=== PATIENT | male | born 1935 | race Caucasian/White ===

== ENCOUNTER 2016-03-29 13:59 | Outpatient (CLI) | payer MEDICARE, OTHER | END 2016-03-29 14:00 | disposition home or self-care (01) | DX: D50.0 Iron deficiency anemia secondary to blood loss (chronic) (principal) ==

== ENCOUNTER 2016-04-28 13:24 | Outpatient (CLI) | payer MEDICARE, OTHER | END 2016-04-28 13:25 | disposition home or self-care (01) | DX: G47.33 Obstructive sleep apnea (adult) (pediatric) (principal) | CPT/HCPCS: 99214; G0463 ==

== ENCOUNTER 2016-05-25 13:54 | Outpatient (CLI) | payer MEDICARE, OTHER | END 2016-05-25 13:55 | disposition home or self-care (01) | DX: J30.9 Allergic rhinitis, unspecified (principal); E78.5 Hyperlipidemia, unspecified; D50.9 Iron deficiency anemia, unspecified; F31.9 Bipolar disorder, unspecified; K21.9 Gastro-esophageal reflux disease without esophagitis; Z85.46 Personal history of malignant neoplasm of prostate; K22.10 Ulcer of esophagus without bleeding; G47.30 Sleep apnea, unspecified ==

== ENCOUNTER 2016-06-28 13:09 | Outpatient (CLI) | payer MEDICARE, OTHER | END 2016-06-28 13:10 | disposition home or self-care (01) | DX: G47.33 Obstructive sleep apnea (adult) (pediatric) (principal) | CPT/HCPCS: 99214; G0463 ==

== ENCOUNTER 2016-07-12 08:35 | Outpatient (CLI) | payer MEDICARE, OTHER | END 2016-07-12 08:36 | disposition home or self-care (01) | DX: R06.00 Dyspnea, unspecified (principal) ==

== ENCOUNTER 2016-07-12 13:57 | Emergency (ER) | payer MEDICARE, OTHER ==
[2016-07-12] MEDS ORDERED: IOPAMIDOL-300 100 ML VIAL IVP ONE (15:43)
== END 2016-07-12 16:42 | disposition home or self-care (01) ==
DX: R06.09 Other forms of dyspnea (principal); I10 Essential (primary) hypertension; I45.2 Bifascicular block; R94.31 Abnormal electrocardiogram [ECG] [EKG]; E78.00 Pure hypercholesterolemia, unspecified; G47.30 Sleep apnea, unspecified; M19.90 Unspecified osteoarthritis, unspecified site; Z87.891 Personal history of nicotine dependence
CPT/HCPCS: 36415; 71275; 80048; 83880; 84484; 85025; 85379; 93005; 93010; 99284; Q9967

== ENCOUNTER 2016-07-19 12:36 | Outpatient (CLI) | payer MEDICARE, OTHER ==
[2016-07-19] MEDS ORDERED: ALBUTEROL NEB 2.5 MG/3 ML INH ONE (13:59)
== END 2016-07-19 12:37 | disposition home or self-care (01) ==
DX: R06.00 Dyspnea, unspecified (principal)

== ENCOUNTER 2016-07-19 14:39 | Outpatient (CLI) | payer MEDICARE, OTHER | END 2016-07-19 14:40 | disposition home or self-care (01) | DX: R06.02 Shortness of breath (principal); Q79.1 Other congenital malformations of diaphragm ==

== ENCOUNTER 2016-08-10 07:46 | Outpatient (CLI) | payer MEDICARE, OTHER ==
[2016-08-10 12:04] LABS: BASOPHILS % (AUTO) 0.3 %; EOSINOPHILS # (AUTO) 0.1 10^3/uL (0.0-0.7); HCT - HEMATOCRIT 39.6 % (42.0-52.0); HGB - HEMOGLOBIN 13.3 g/dL (14.0-18.0); IMMATURE RETIC FRACTION 0.37; LYMPHOCYTES # (AUTO) 1.1 10^3/uL (1.5-3.5); LYMPHOCYTES % (AUTO) 17.1 %; MEAN CORPUSCULAR HEMOGLOBIN 28.4 pg (27.0-31.0); MEAN CORPUSCULAR HGB CONC 33.6 g/dL (32.0-36.0); MEAN CORPUSCULAR VOLUME 84.4 fL (80.0-94.0); MEAN PLATELET VOLUME 8.4 fL (7.4-11.4); MONOCYTES # (AUTO) 0.5 10^3/uL (0.0-1.0); MONOCYTES % (AUTO) 8.2 %; NEUTROPHILS # (AUTO) 4.9 10^3/uL (1.5-6.6); NEUTROPHILS % (AUTO) 73.4 %; RED CELL DISTRIBUTION WIDTH 15.6 % (12.0-15.0); UNCORRECTED WHITE BLOOD COUNT 6.7 x10^3/uL; WHITE BLOOD COUNT 6.7 x10^3/uL (4.8-10.8)
[2016-08-10 12:31] LABS: GLUCOSE 95 mg/dL (70-100); IRON 43 ug/dL (45-182); TOTAL IRON BINDING CAPACITY 259 ug/dL (250-450); TRANSFERRIN 185 mg/dL (180-329)
[2016-08-10 13:00] LABS: FERRITIN 83.9 ng/mL (23.9-336.2)
== END 2016-08-10 07:47 | disposition home or self-care (01) ==
LOC: LAB.F 07:46
PROVIDERS: ATTEND Internal Medicine
DX: E78.5 Hyperlipidemia, unspecified (principal); D50.9 Iron deficiency anemia, unspecified; J30.9 Allergic rhinitis, unspecified; F31.9 Bipolar disorder, unspecified; R03.0 Elevated blood-pressure reading, without diagnosis of hypertension; K21.9 Gastro-esophageal reflux disease without esophagitis; Z85.46 Personal history of malignant neoplasm of prostate; R06.00 Dyspnea, unspecified; G47.30 Sleep apnea, unspecified
CPT/HCPCS: 36415; 82607; 82728; 82746; 82947; 83540; 84466; 85025; 85044

== ENCOUNTER 2016-09-01 13:00 | Outpatient (CLI) | payer MEDICARE, OTHER | END 2016-09-01 13:01 | disposition home or self-care (01) | LOC: SC 13:00 | PROVIDERS: ATTEND Nurse Practitioner Family | DX: G47.33 Obstructive sleep apnea (adult) (pediatric) (principal) | CPT/HCPCS: 99214; G0463; 99212 ==

== ENCOUNTER 2016-11-01 13:20 | Outpatient (CLI) | payer MEDICARE, OTHER | END 2016-11-01 13:21 | disposition home or self-care (01) | LOC: SC 13:20 | PROVIDERS: ATTEND Nurse Practitioner Family | DX: G47.33 Obstructive sleep apnea (adult) (pediatric) (principal) | CPT/HCPCS: 99214; G0463; 99212 ==

== ENCOUNTER 2017-01-05 13:02 | Outpatient (CLI) | payer MEDICARE, OTHER | END 2017-01-05 13:03 | disposition home or self-care (01) | LOC: SC 13:02 | PROVIDERS: ATTEND Nurse Practitioner Family | DX: G47.33 Obstructive sleep apnea (adult) (pediatric) (principal) | CPT/HCPCS: 99214; G0463; 99212 ==

== ENCOUNTER 2017-02-22 13:44 | Outpatient (CLI) | payer MEDICARE, OTHER ==
[2017-02-22 17:50] LABS: BASOPHILS % (AUTO) 0.5 %; EOSINOPHILS # (AUTO) 0.1 10^3/uL (0.0-0.7); EOSINOPHILS % (AUTO) 1.6 %; HCT - HEMATOCRIT 37.8 % (42.0-52.0); HGB - HEMOGLOBIN 12.4 g/dL (14.0-18.0); LYMPHOCYTES # (AUTO) 0.9 10^3/uL (1.5-3.5); LYMPHOCYTES % (AUTO) 14.9 %; MEAN CORPUSCULAR HEMOGLOBIN 28.8 pg (27.0-31.0); MEAN CORPUSCULAR HGB CONC 32.8 g/dL (32.0-36.0); MEAN CORPUSCULAR VOLUME 87.9 fL (80.0-94.0); MEAN PLATELET VOLUME 7.8 fL (7.4-11.4); MONOCYTES # (AUTO) 0.5 10^3/uL (0.0-1.0); MONOCYTES % (AUTO) 8.4 %; NEUTROPHILS # (AUTO) 4.5 10^3/uL (1.5-6.6); NEUTROPHILS % (AUTO) 74.6 %; NUCLEATED RED BLOOD CELLS AUTO 0.1 /100WBC; UNCORRECTED WHITE BLOOD COUNT 6.1 x10^3/uL; WHITE BLOOD COUNT 6.1 x10^3/uL (4.8-10.8)
[2017-02-22 18:18] LABS: IRON 31 ug/dL (45-182); TOTAL IRON BINDING CAPACITY 242 ug/dL (250-450); TRANSFERRIN 173 mg/dL (180-329)
== END 2017-02-22 13:45 | disposition home or self-care (01) ==
LOC: LAB.F 13:44
PROVIDERS: ATTEND Internal Medicine
DX: D50.9 Iron deficiency anemia, unspecified (principal)
CPT/HCPCS: 36415; 83540; 84466; 85025

== ENCOUNTER 2017-03-07 13:00 | Outpatient (CLI) | payer MEDICARE, OTHER | END 2017-03-07 13:01 | disposition home or self-care (01) | LOC: SC 13:00 | PROVIDERS: ATTEND Nurse Practitioner Family | DX: G47.33 Obstructive sleep apnea (adult) (pediatric) (principal) | CPT/HCPCS: 99214; G0463; 99212 ==

== ENCOUNTER 2017-04-05 13:02 | Outpatient (CLI) | payer MEDICARE, OTHER ==
[2017-04-05 17:57] LABS: CALCIUM 8.7 mg/dL (8.5-10.3); CREATININE 0.9 mg/dL (0.6-1.2)
== END 2017-04-05 13:03 | disposition home or self-care (01) ==
LOC: LAB.F 13:02
PROVIDERS: ATTEND Internal Medicine
DX: J30.9 Allergic rhinitis, unspecified (principal); F31.9 Bipolar disorder, unspecified; R03.0 Elevated blood-pressure reading, without diagnosis of hypertension; K21.9 Gastro-esophageal reflux disease without esophagitis; E78.5 Hyperlipidemia, unspecified; D50.9 Iron deficiency anemia, unspecified; Z85.46 Personal history of malignant neoplasm of prostate; G47.30 Sleep apnea, unspecified
CPT/HCPCS: 36415; 80048

== ENCOUNTER 2017-05-17 13:53 | Outpatient (CLI) | payer MEDICARE, OTHER ==
[2017-05-17 18:12] LABS: CALCIUM 8.6 mg/dL (8.5-10.3); CREATININE 0.9 mg/dL (0.6-1.2)
== END 2017-05-17 13:54 | disposition home or self-care (01) ==
LOC: LAB.F 13:53
PROVIDERS: ATTEND Internal Medicine
DX: I10 Essential (primary) hypertension (principal); E78.5 Hyperlipidemia, unspecified; D50.9 Iron deficiency anemia, unspecified; J30.9 Allergic rhinitis, unspecified; F31.9 Bipolar disorder, unspecified; K21.9 Gastro-esophageal reflux disease without esophagitis; Z85.46 Personal history of malignant neoplasm of prostate; G47.30 Sleep apnea, unspecified
CPT/HCPCS: 36415; 80048

== ENCOUNTER 2017-06-14 08:56 | Outpatient (CLI) | payer MEDICARE, OTHER ==
[2017-06-14 17:32] LABS: BASOPHILS % (AUTO) 0.6 %; EOSINOPHILS # (AUTO) 0.1 10^3/uL (0.0-0.7); EOSINOPHILS % (AUTO) 1.1 %; HGB - HEMOGLOBIN 12.9 g/dL (14.0-18.0); LYMPHOCYTES % (AUTO) 16.2 %; MEAN CORPUSCULAR HEMOGLOBIN 27.9 pg (27.0-31.0); MEAN CORPUSCULAR HGB CONC 32.6 g/dL (32.0-36.0); MEAN CORPUSCULAR VOLUME 85.6 fL (80.0-94.0); MEAN PLATELET VOLUME 7.7 fL (7.4-11.4); MONOCYTES # (AUTO) 0.5 10^3/uL (0.0-1.0); MONOCYTES % (AUTO) 8.9 %; NEUTROPHILS # (AUTO) 4.5 10^3/uL (1.5-6.6); NEUTROPHILS % (AUTO) 73.2 %; PLT - PLATELET COUNT 198 10^3/uL (130-450); RED BLOOD COUNT 4.63 10^6/uL (4.70-6.10); RED CELL DISTRIBUTION WIDTH 16.2 % (12.0-15.0); WHITE BLOOD COUNT 6.1 x10^3/uL (4.8-10.8)
[2017-06-14 17:59] LABS: % IRON SATURATION 18 % (20-50); BUN - BLOOD UREA NITROGEN 20 mg/dL (6-20); CALCIUM 8.6 mg/dL (8.5-10.3); CARBON DIOXIDE - CO2 27 mmol/L (21-32); CHLORIDE 104 mmol/L (101-111); CHOL/HDL RATIO 4.1 (<5.0); CHOLESTEROL 151 mg/dL; CREATININE 0.8 mg/dL (0.6-1.2); GFR - MDRD 93 (>89); GLUCOSE 96 mg/dL (70-100); HDL CHOLESTEROL 37 mg/dL; IRON 45 ug/dL (45-182); LDL CHOLESTEROL,CALCULATED 90 mg/dL; LDL/HDL RATIO 2.4 (<3.6); SODIUM 137 mmol/L (135-145); TOTAL IRON BINDING CAPACITY 248 ug/dL (250-450); TRANSFERRIN 177 mg/dL (180-329); VLDL CHOLESTEROL 24 mg/dL
== END 2017-06-14 08:57 | disposition home or self-care (01) ==
LOC: LAB.F 08:56
PROVIDERS: ATTEND Internal Medicine
DX: J30.9 Allergic rhinitis, unspecified (principal); D50.9 Iron deficiency anemia, unspecified; E78.5 Hyperlipidemia, unspecified; F31.9 Bipolar disorder, unspecified; K21.9 Gastro-esophageal reflux disease without esophagitis; I10 Essential (primary) hypertension; G47.30 Sleep apnea, unspecified; Z85.46 Personal history of malignant neoplasm of prostate
CPT/HCPCS: 36415; 80048; 80061; 83540; 83721; 84466; 85025

== ENCOUNTER 2017-10-04 13:40 | Outpatient (CLI) | payer MEDICARE, OTHER | END 2017-10-04 13:41 | disposition home or self-care (01) | LOC: LAB.F 13:40 | PROVIDERS: ATTEND Internal Medicine | DX: J30.9 Allergic rhinitis, unspecified (principal); Z85.46 Personal history of malignant neoplasm of prostate; F31.9 Bipolar disorder, unspecified; K21.9 Gastro-esophageal reflux disease without esophagitis; E78.5 Hyperlipidemia, unspecified; I10 Essential (primary) hypertension; D50.9 Iron deficiency anemia, unspecified; G47.30 Sleep apnea, unspecified | CPT/HCPCS: 36415; 84153 ==

== ENCOUNTER 2018-03-06 12:54 | Outpatient (CLI) | payer MEDICARE, OTHER | END 2018-03-06 12:55 | disposition home or self-care (01) | LOC: SC 12:54 | PROVIDERS: ATTEND Nurse Practitioner Family | DX: G47.33 Obstructive sleep apnea (adult) (pediatric) (principal); I49.9 Cardiac arrhythmia, unspecified | CPT/HCPCS: 99214; G0463; 99212 ==

== ENCOUNTER 2018-03-07 12:52 | Outpatient (CLI) | payer MEDICARE, OTHER | END 2018-03-07 12:53 | disposition home or self-care (01) | LOC: RT 12:52 | PROVIDERS: ATTEND Internal Medicine | DX: I49.9 Cardiac arrhythmia, unspecified (principal) | CPT/HCPCS: 93005 ==

== ENCOUNTER 2018-06-27 08:43 | Outpatient (CLI) | payer MEDICARE, OTHER ==
[2018-06-27 18:41] LABS: BASOPHILS % (AUTO) 0.5 %; EOSINOPHILS # (AUTO) 0.1 10^3/uL (0.0-0.7); EOSINOPHILS % (AUTO) 1.5 %; HGB - HEMOGLOBIN 11.5 g/dL (14.0-18.0); LYMPHOCYTES % (AUTO) 13.7 %; MEAN CORPUSCULAR HEMOGLOBIN 28.4 pg (27.0-31.0); MEAN CORPUSCULAR HGB CONC 32.5 g/dL (32.0-36.0); MEAN CORPUSCULAR VOLUME 87.5 fL (80.0-94.0); MEAN PLATELET VOLUME 8.1 fL (7.4-11.4); MONOCYTES # (AUTO) 0.6 10^3/uL (0.0-1.0); MONOCYTES % (AUTO) 7.7 %; NEUTROPHILS # (AUTO) 5.6 10^3/uL (1.5-6.6); NEUTROPHILS % (AUTO) 76.6 %; PLT - PLATELET COUNT 235 10^3/uL (130-450); RED BLOOD COUNT 4.06 10^6/uL (4.70-6.10); RED CELL DISTRIBUTION WIDTH 15.8 % (12.0-15.0); WHITE BLOOD COUNT 7.3 x10^3/uL (4.8-10.8)
[2018-06-27 18:57] LABS: % IRON SATURATION 11 % (20-50); BUN - BLOOD UREA NITROGEN 29 mg/dL (6-20); CALCIUM 8.3 mg/dL (8.5-10.3); CARBON DIOXIDE - CO2 23 mmol/L (21-32); CHLORIDE 105 mmol/L (101-111); CHOL/HDL RATIO 3.8 (<5.0); CHOLESTEROL 127 mg/dL; CREATININE 0.8 mg/dL (0.6-1.2); GFR - MDRD 93 (>89); GLUCOSE 106 mg/dL (70-100); HDL CHOLESTEROL 33 mg/dL; IRON 25 ug/dL (45-182); LDL CHOLESTEROL,CALCULATED 63 mg/dL; LDL/HDL RATIO 1.9 (<3.6); SODIUM 135 mmol/L (135-145); TOTAL IRON BINDING CAPACITY 225 ug/dL (250-450); TRANSFERRIN 161 mg/dL (180-329); VLDL CHOLESTEROL 31 mg/dL
== END 2018-06-27 08:44 | disposition home or self-care (01) ==
LOC: LAB.F 08:43
PROVIDERS: ATTEND Internal Medicine
DX: J30.9 Allergic rhinitis, unspecified (principal); F31.9 Bipolar disorder, unspecified; K21.9 Gastro-esophageal reflux disease without esophagitis; E78.5 Hyperlipidemia, unspecified; I10 Essential (primary) hypertension; D50.9 Iron deficiency anemia, unspecified; Z85.46 Personal history of malignant neoplasm of prostate; G47.30 Sleep apnea, unspecified
CPT/HCPCS: 36415; 80048; 80061; 82728; 83540; 83721; 84466; 85025

== ENCOUNTER 2019-04-04 10:01 | Outpatient (CLI) | payer MEDICARE, OTHER ==
[2019-04-04 11:11] VITALS: BP 130/70
--- NOTE | 2019-04-04 11:11 | SLEEP CARE CONSULTATION ---
Information from patient questionnaire entered by Hilda Pires. I have reviewed and concur with the information entered by Hilda Pires. This document represents the service I personally performed and the decisions made by me, Bernie Garcia, RN, MSN, LITHOGRAPHIC RETOUCHER APPRENTICE. History of Present Illness Previous diagnosis: Severe, Obstructive Sleep Apnea-Hypopnea Syndrome AHI: 42.4 Reason for follow up: annual (last seen 2018) Equipment type: CPAP Equipment obtained from: [employer] (getting supplies about a week after ordered and delivers to [place] pharmacy or home .) Mask style: Full face (Air Touch) Mask brand: Resmed Backup mask available: Yes Last cushion change: 1st of month CPAP Compliance Data - Data Reviewed with Patient Average duration of nightly device use: 5.7 Compliance rate %: 94.4 (180 days) Current pressure setting (cmH2O): 14-15 Humidity settin Heated hose settin Average residual AHI: 7.9 Central apnea: 0 Obstructive apnea: 0 Hypopnea: 7.9 Average large leak: 3 hr 40 min 8 sec Subjective Patient concerns: denies: aerophagia, mask discomfort, air blowing in eyes, mask leak noise, condensation in mask/hose, nasal congestion, dry mouth, nose, throat, epistaxis Observed to snore while using device: No Current pressure setting perceived as: comfortable On therapy, patient: reports: awakening more refreshed, being more awake and alert during the day, more rested overall. denies: drowsiness while driving Initial [place] Sleepiness Scale score: 13 Current [place] Sleepiness Scale score: 2 Allergies and Home Medications Known drug allergies: No Home medication list reviewed: Yes (see list - no changes) Allergy and home medication list: sertraline 50mg daily metamucil 425gm daily pravastatin 80mg daily omeprazole 20mg daily stool softener 250mg daily calcium cargonate 600mg daily Review of Systems Review of systems same as previous: No Physical Exam Blood Pressure: 130/70 Cuff size: long Heart Rate: 80 O2 Saturation: 94 Height: 5 ft 8 in Weight: 223 lb 3.2 oz Weight change since last visit: gained 20 pounds Body Mass Index: 33.9 BMI Classification: Obesity Class 1 Impression and Plan 1. Obstructive Sleep Apnea-Hypopnea Syndrome, severe, with good treatment compliance and elevated residual apnea. On CPAP therapy, the patient has better sleep quality and is more rested overall. The compliance report again shows extra mask leaks and less use then patient actually uses CPAP. He has a very regular sleep schedule of 8 hours. Since he has gained 20 pounds since last seen, his residual AHI has also increased so I will need to increase his autoCPAP pressure slightly to [id number]. If the pressure change is uncom fortable he is to notify me. It will also increase mask leaks risk. So patient advised to continue cleaning off mask daily and changing mask cushion monthly to improve seal of mask. Currently patients BMI is 33.4 obesity class . Obesity increases the risk of apnea, CPAP pressure requirements and overall health risks especially cardiovascular and diabetes. Thus patient is advised to lose weight. Weight loss can be done with reducing portion size, refined foods and balancing content with vegetables, fruit and protein. A diet consultation can be helpful in achieving optimal weight loss goals. The BMI chart was reviewed. If he loses recent 20 pounds weight gain, he will lower BMI to 29. Patient encouraged to discuss their weight loss goals with their PCP and consider a referral to a cooking appliance repair technician. He gets meals on wheels so his choices may not be always reduced calories. Thus he is advised of portion control. Patient's apnea severity and rationale for treatment to reduce apnea, improve sleep quality and reduce cardiovascular and cerebrovascular events was reviewed. I also reviewed the benefit of consistent device use of CPAP for depression/anxiety. * * Change CPAP pressure to 15-16 cmH2O * Notify me if snoring with mask or feeling that the pressure is too much or too little * Attempt to lose weight * Call this office if any problems using CPAP * Return for follow up in 2 months , or sooner if concerns arise Time Spent with Patient (minutes): 30 I spent 100% of this visit face to face with the patient with greater than 50% of this was spent time counseling the patient and coordination of care.
== END 2019-04-04 10:02 | disposition home or self-care (01) ==
LOC: SC 10:01
PROVIDERS: ATTEND Nurse Practitioner Family
DX: G47.33 Obstructive sleep apnea (adult) (pediatric) (principal); E66.9 Obesity, unspecified; Z68.33 Body mass index [BMI] 33.0-33.9, adult
CPT/HCPCS: 99214; G0463; 99212

== ENCOUNTER 2019-06-27 14:45 | Outpatient (CLI) | payer MEDICARE, OTHER ==
--- NOTE | 2019-06-27 10:51 | SLEEP CARE CONSULTATION ---
Information from patient questionnaire entered by Patricia Duran. I have reviewed and concur with the information entered by Patricia Duran. This document represents the service I personally performed and the decisions made by me, Bernie Garcia, RN, MSN, CARPET INSTALLER HELPER. History of Present Illness Service Date and Time: 06/27/2019 1030 Previous diagnosis: Severe, Obstructive Sleep Apnea-Hypopnea Syndrome AHI: 42.4 Reason for follow up: other (2 month with pressure change) Equipment type: CPAP Equipment obtained from: [facility] Mask style: Full face Backup mask available: Yes Last cushion change: 1 month ago CPAP Compliance Data - Data Reviewed with Patient Average duration of nightly device use: 7h 18m Compliance rate %: 98.9 Current pressure setting (cmH2O): 15-16 Humidity settin Heated hose settin Average residual AHI: 5.2 Average large leak: 3h 10m 36s Subjective Patient concerns: reports: other (insomnia due ). denies: aerophagia, mask discomfort, air blowing in eyes, mask leak noise, condensation in mask/hose, nasal congestion, dry mouth, nose, throat, epistaxis Observed to snore while using device: No Current pressure setting perceived as: comfortable On therapy, patient: reports: sleeping better, awakening more refreshed, being more awake and alert during the day, more rested overall, other. denies: drowsiness while driving Initial [place] Sleepiness Scale score: 13 Allergies and Home Medications Home medication list reviewed: No (no change) Review of Systems Review of systems same as previous: Yes Physical Exam Height: 5 ft 8 in Impression and Plan 1. Obstructive Sleep Apnea-Hypopnea Syndrome, severe, with good treatment compliance and good apnea control. The increase in pressure reduced residual AHI to 5.2. He continues to have large mask leaks even with shaving off his be ondina and changing his mask regularly. The mask leaks do not disturb his sleep nor have caused any oral dryness.On CPAP therapy, the patient has better sleep quality and is more rested overall except when he has occasional insomnia due to some personal concerns. He is very pleased with benefit of CPAP treatment and is getting his supplies delivered as needed. To assist him to return to sleep when he awakens to things on his mind, he is advised to put a tablet of paper at bedside so can write out concerns as a release and then read something relaxing until sleepy. This will allow him to have better sleep quality so he can address his concerns better in the daytime hours. Patient's apnea severity and rationale for treatment to reduce apnea, improve sleep quality and reduce cardiovascular and cerebrovascular events was reviewed. I also reviewed the benefit of consistent device use of CPAP for hypertension,depression/anxiety. * Continue CPAP pressure at 15-16 cmH2O * Implement measures to reduce insomnia * Notify me if snoring with mask or feeling that the pressure is too much or too little * Call this office if any problems using CPAP * Return for follow up in 1 year , or sooner if concerns arise Visit Type: Telehealth Phone (to minimize the risk of COVID 19 exposure, the patient agreed to a telehealth phone visit and to bill his insurance.) Patient agrees and consents to this telehealth visit type: Yes Time Spent with Patient (minutes): 10 Provider Statement: I spent 100% of the Telehealth Phone Call with the patient with greater than 50% spent counseling the patient and coordination of care.
== END 2019-06-27 14:46 | disposition home or self-care (01) ==
LOC: SC 14:45
PROVIDERS: ATTEND Nurse Practitioner Family
DX: G47.33 Obstructive sleep apnea (adult) (pediatric) (principal)

== ENCOUNTER 2019-07-03 08:54 | Outpatient (CLI) | payer MEDICARE, OTHER ==
[2019-07-03 09:18] LABS: BASOPHILS % (AUTO) 0.4 %; EOSINOPHILS # (AUTO) 0.1 10^3/uL (0.0-0.7); EOSINOPHILS % (AUTO) 0.7 %; HGB - HEMOGLOBIN 12.2 g/dL (14.0-18.0); LYMPHOCYTES # (AUTO) 1.2 10^3/uL (1.5-3.5); LYMPHOCYTES % (AUTO) 14.3 %; MEAN CORPUSCULAR HEMOGLOBIN 29.3 pg (27.0-31.0); MEAN CORPUSCULAR HGB CONC 32.5 g/dL (32.0-36.0); MEAN CORPUSCULAR VOLUME 89.9 fL (80.0-94.0); MEAN PLATELET VOLUME 9.3 fL (7.4-11.4); MONOCYTES # (AUTO) 0.6 10^3/uL (0.0-1.0); MONOCYTES % (AUTO) 7.5 %; NEUTROPHILS # (AUTO) 6.2 10^3/uL (1.5-6.6); NEUTROPHILS % (AUTO) 76.6 %; PLT - PLATELET COUNT 198 10^3/uL (130-450); RED BLOOD COUNT 4.17 10^6/uL (4.70-6.10)
[2019-07-03 09:36] LABS: BUN - BLOOD UREA NITROGEN 29 mg/dL (6-20); CALCIUM 8.6 mg/dL (8.5-10.3); CARBON DIOXIDE - CO2 24 mmol/L (21-32); CHLORIDE 105 mmol/L (101-111); CHOL/HDL RATIO 4.5 (<5.0); CHOLESTEROL 171 mg/dL; CREATININE 0.9 mg/dL (0.6-1.2); GLUCOSE 133 mg/dL (70-100); HDL CHOLESTEROL 38 mg/dL; LDL CHOLESTEROL,CALCULATED 82 mg/dL; LDL/HDL RATIO 2.2 (<3.6); SODIUM 136 mmol/L (135-145); VLDL CHOLESTEROL 51 mg/dL
== END 2019-07-03 08:55 | disposition home or self-care (01) ==
LOC: LAB 08:54
PROVIDERS: ATTEND Internal Medicine
DX: J30.9 Allergic rhinitis, unspecified (principal); F31.9 Bipolar disorder, unspecified; K21.9 Gastro-esophageal reflux disease without esophagitis; E78.5 Hyperlipidemia, unspecified; I10 Essential (primary) hypertension; D50.9 Iron deficiency anemia, unspecified; Z85.46 Personal history of malignant neoplasm of prostate; G47.30 Sleep apnea, unspecified
CPT/HCPCS: 36415; 80048; 80061; 82728; 83721; 85025

== ENCOUNTER 2020-06-30 13:33 | Outpatient (CLI) | payer MEDICARE, OTHER ==
--- NOTE | 2020-06-30 14:09 | SLEEP CARE CONSULTATION ---
Information from patient questionnaire entered by Karla De La Rosa. I have reviewed and concur with the information entered by Karla De La Rosa. This document represents the service I personally performed and the decisions made by me, Teresa Giraldo ARNP. History of Present Illness Service Date and Time: 06/30/2020 1333 Previous diagnosis: Severe, Obstructive Sleep Apnea-Hypopnea Syndrome AHI: 42.4 Reason for follow up: annual (Last seen 06/2019) Equipment type: CPAP Equipment obtained from: [employer] (getting supplies as needed) Mask style: Full face Backup mask available: Yes (old mask) Last cushion change: 2 weeks ago Year and Where: 2008 [facility] additional information: PETE KEITH was diagnosed to have severe, AHI 42.4, obstructive sleep apnea- hypopnea syndrome and returned today for CPAP therapy annual follow-up. CPAP Compliance Data - Data Reviewed with Patient Average duration of nightly device use: 7 h 1 min Compliance rate %: 97.2 Current pressure setting (cmH2O): 15-16 Humidity settin Average residual AHI: 5.7 Average large leak: 4 h 24 min 58 sec Subjective Missed days of use due to: reports: mask issues Patient concerns: reports: mask leak noise (gets better with adjusting mask). denies: aerophagia, mask discomfort, air blowing in eyes, condensation in mask/hose, nasal congestion, dry mouth, nose, throat, epistaxis, other Observed to snore while using device: No Current pressure setting perceived as: comfortable On therapy, patient: reports: sleeping better, awakening more refreshed, being more awake and alert during the day, more rested overall. denies: drowsiness while driving Initial [place] Sleepiness Scale score: 13 (in 2008) Current [place] Sleepiness Scale score: 3 Allergies and Home Medications Home medication list reviewed: Yes (no changes) Review of Systems Review of systems same as previous: Yes (no changes; had Covid vaccine x 2 shots) Physical Exam Heart Rate: 80 O2 Saturation: 95 Height: 5 ft 8 in Weight: 210 lb Body Mass Index: 31.9 BMI Classification: Obese Impression and Plan 1. Obstructive Sleep Apnea-Hypopnea Syndrome, severe, with good treatment compliance and fair apnea control with minimal elevation of residual AHI. On CPAP therapy, the patient has better sleep quality and is more rested overall. He has had significant improvement of his AHI and is satisfied with his treatment. Patient's apnea severity and rationale for treatment to reduce apnea, improve sleep quality and reduce cardiovascular and cerebrovascular events was reviewed. I also reviewed the benefit of consistent device use of CPAP for hypertension and depression/anxiety. * Continue autoCPAP pressure at 15-16 cmH2O * Notify me if snoring with mask or feeling that the pressure is too much or too little * Attempt to lose weight * Call this office if any problems using CPAP * Return for follow up in 1 year, or sooner if concerns arise Counseling Topics: Spare mask, Weight loss health impact Visit Type: In Office Time Spent with Patient (minutes): 12 Provider Statement: I spent 100% of the Face to Face Visit with the patient with greater than 50% spent counseling the patient and coordination of care.
== END 2020-06-30 13:34 | disposition home or self-care (01) ==
LOC: SC 13:33
PROVIDERS: ATTEND Nurse Practitioner Family
DX: G47.33 Obstructive sleep apnea (adult) (pediatric) (principal); E66.9 Obesity, unspecified; Z68.31 Body mass index [BMI] 31.0-31.9, adult
CPT/HCPCS: 99212; G0463

== ENCOUNTER 2020-10-01 10:33 | Outpatient (CLI) | payer MEDICARE, OTHER ==
[2020-10-01 14:36] LABS: BASOPHILS % (AUTO) 0.3 %; EOSINOPHILS # (AUTO) 0.1 10^3/uL (0.0-0.7); HCT - HEMATOCRIT 37.4 % (42.0-52.0); HGB - HEMOGLOBIN 11.4 g/dL (14.0-18.0); LYMPHOCYTES # (AUTO) 1.1 10^3/uL (1.5-3.5); LYMPHOCYTES % (AUTO) 15.4 %; MEAN CORPUSCULAR HEMOGLOBIN 27.5 pg (27.0-31.0); MEAN CORPUSCULAR HGB CONC 30.5 g/dL (32.0-36.0); MEAN CORPUSCULAR VOLUME 90.1 fL (80.0-94.0); MEAN PLATELET VOLUME 10.1 fL (7.4-11.4); MONOCYTES # (AUTO) 0.6 10^3/uL (0.0-1.0); MONOCYTES % (AUTO) 8.6 %; NEUTROPHILS # (AUTO) 5.4 10^3/uL (1.5-6.6); NEUTROPHILS % (AUTO) 74.3 %; PLT - PLATELET COUNT 199 10^3/uL (130-450); RED BLOOD COUNT 4.15 10^6/uL (4.70-6.10); RED CELL DISTRIBUTION WIDTH 15.6 % (12.0-15.0); WHITE BLOOD COUNT 7.3 x10^3/uL (4.8-10.8)
[2020-10-01 15:16] LABS: % IRON SATURATION 15 % (20-50); BUN - BLOOD UREA NITROGEN 33 mg/dL (6-20); CALCIUM 8.6 mg/dL (8.5-10.3); CARBON DIOXIDE - CO2 26 mmol/L (21-32); CHLORIDE 101 mmol/L (101-111); CHOL/HDL RATIO 4.3 (<5.0); CHOLESTEROL 154 mg/dL; GFR - MDRD 71 (>89); GLUCOSE 117 mg/dL (70-100); HDL CHOLESTEROL 36 mg/dL; IRON 35 ug/dL (45-182); LDL CHOLESTEROL,CALCULATED 67 mg/dL; LDL/HDL RATIO 1.9 (<3.6); POTASSIUM 4.4 mmol/L (3.5-5.0); SODIUM 135 mmol/L (135-145); TOTAL IRON BINDING CAPACITY 239 ug/dL (250-450); TRANSFERRIN 171 mg/dL (180-329); TRIGLYCERIDES 255 mg/dL; VLDL CHOLESTEROL 51 mg/dL
[2020-10-01 20:00] LABS: ESTIMATED AVERAGE GLUCOSE 128 mg/dL (70-100); HEMOGLOBIN A1c% 6.1 % (4.27-6.07)
== END 2020-10-01 10:34 | disposition home or self-care (01) ==
LOC: LAB.S 10:33
PROVIDERS: ATTEND Internal Medicine
DX: Z00.00 Encounter for general adult medical examination without abnormal findings (principal); J30.9 Allergic rhinitis, unspecified; F31.9 Bipolar disorder, unspecified; K21.9 Gastro-esophageal reflux disease without esophagitis; E78.5 Hyperlipidemia, unspecified; I10 Essential (primary) hypertension; D50.9 Iron deficiency anemia, unspecified; Z85.46 Personal history of malignant neoplasm of prostate; G47.30 Sleep apnea, unspecified
CPT/HCPCS: 36415; 80048; 80061; 82728; 83036; 83540; 83721; 84466; 85025

== ENCOUNTER 2020-11-03 09:49 | Outpatient (CLI) | payer MEDICARE, OTHER ==
[2020-11-03 14:25] LABS: BASOPHILS % (AUTO) 0.5 %; EOSINOPHILS # (AUTO) 0.1 10^3/uL (0.0-0.7); EOSINOPHILS % (AUTO) 1.1 %; HCT - HEMATOCRIT 36.6 % (42.0-52.0); HGB - HEMOGLOBIN 11.5 g/dL (14.0-18.0); LYMPHOCYTES # (AUTO) 1.2 10^3/uL (1.5-3.5); LYMPHOCYTES % (AUTO) 14.4 %; MEAN CORPUSCULAR HEMOGLOBIN 28.3 pg (27.0-31.0); MEAN CORPUSCULAR HGB CONC 31.4 g/dL (32.0-36.0); MEAN CORPUSCULAR VOLUME 90.1 fL (80.0-94.0); MONOCYTES # (AUTO) 0.7 10^3/uL (0.0-1.0); MONOCYTES % (AUTO) 8.1 %; NEUTROPHILS # (AUTO) 6.1 10^3/uL (1.5-6.6); NEUTROPHILS % (AUTO) 75.2 %; PLT - PLATELET COUNT 207 10^3/uL (130-450); RED BLOOD COUNT 4.06 10^6/uL (4.70-6.10); RED CELL DISTRIBUTION WIDTH 15.7 % (12.0-15.0); WHITE BLOOD COUNT 8.1 x10^3/uL (4.8-10.8)
[2020-11-03 14:56] LABS: CREATININE 0.9 mg/dL (0.6-1.2); POTASSIUM 4.9 mmol/L (3.5-5.0)
== END 2020-11-03 09:50 | disposition home or self-care (01) ==
LOC: LAB.S 09:49
PROVIDERS: ATTEND Internal Medicine
DX: I10 Essential (primary) hypertension (principal); D50.9 Iron deficiency anemia, unspecified
CPT/HCPCS: 36415; 80048; 83540; 84466; 85025

== ENCOUNTER 2020-12-07 15:16 | Outpatient (CLI) | payer MEDICARE, OTHER ==
[2020-12-07 20:17] LABS: CREATININE 1.6 mg/dL (0.6-1.2); POTASSIUM 4.5 mmol/L (3.5-5.0)
== END 2020-12-07 15:17 | disposition home or self-care (01) ==
LOC: LAB.S 15:16
PROVIDERS: ATTEND Internal Medicine
DX: I10 Essential (primary) hypertension (principal)
CPT/HCPCS: 36415; 80048

== ENCOUNTER 2021-01-05 12:22 | Outpatient (CLI) | payer MEDICARE, OTHER ==
[2021-01-05 15:37] LABS: CALCIUM 8.8 mg/dL (8.5-10.3); CREATININE 1.3 mg/dL (0.6-1.2); POTASSIUM 4.5 mmol/L (3.5-5.0)
== END 2021-01-05 12:23 | disposition home or self-care (01) ==
LOC: LAB.S 12:22
PROVIDERS: ATTEND Internal Medicine
DX: I10 Essential (primary) hypertension (principal)
CPT/HCPCS: 36415; 80048

== ENCOUNTER 2021-05-06 14:21 | Outpatient (CLI) | payer MEDICARE, OTHER ==
--- NOTE | 2021-05-06 16:25 | DEXA Report ---
PROCEDURE: Dexa Spine and/or Hip INDICATIONS: HISTORY OF FRAGILITY FRACTURE TECHNIQUE: Dual energy x-ray absorptiometry (DXA) was performed on a [employer] System. Regions measur ed are the AP Spine, femoral neck, and if needed forearm. COMPARISON: None. FINDINGS: Lumbar Spine: Bone Mineral Density 1.108 g/cm/cm,T score -0.9. Right Hip: Bone Mineral Density 0.863 g/cm/cm,T score -1.7. Right Femoral Neck: Bone Mineral Density 0.783 g/cm/cm, T score -2.2. (T score greater or equal to -1.0: NORMAL) (T score from -1.1 to -2.4: OSTEOPENIA) (T score less than or equal to -2.5 to: OSTEOPOROSIS) Impression: Osteopenia. Patients with diagnosis of osteoporosis or osteopenia should have regular bone mineral density assess ment. For those eligible for Medicare, routine testing is allowed once every 2 years. Testing frequ ency can be increased for patients who have rapidly progressing disease or for those who are receivin g medical therapy to restore bone mass. Reviewed by: Anton Choudhury MD on 05/06/2021 4:24 PM PST Approved by: Anton Choudhury MD on 05/06/2021 4:24 PM PST Station ID: [id number]
== END 2021-05-06 14:22 | disposition home or self-care (01) ==
LOC: DI 14:21
PROVIDERS: ATTEND Internal Medicine
DX: M85.89 Other specified disorders of bone density and structure, multiple sites (principal); Z87.310 Personal history of (healed) osteoporosis fracture

== ENCOUNTER 2021-07-29 12:54 | Outpatient (CLI) | payer MEDICARE, OTHER ==
[2021-07-29 13:48] VITALS: BP 123/72
--- NOTE | 2021-07-29 13:48 | SLEEP CARE CONSULTATION ---
Information from patient questionnaire entered by Yury Magallon MA. I have reviewed and concur with the information entered by Yury Magallon MA. This document represents the service I personally performed and the decisions made by , Teresa Giraldo ARNP. History of Present Illness Service Date and Time: 07/29/2021 1254 Previous diagnosis: Severe, Obstructive Sleep Apnea-Hypopnea Syndrome AHI: 42.4 Reason for follow up: annual (LAST SEEN 06/30/2020, SUNNY,) Accompanied by: Mindy Reeves Equipment type: CPAP Equipment obtained from: [email or web address] (getting supplies as needed) Mask style: Full face Backup mask available: Yes (other mask) Last cushion change: last month Prior sleep studies: Yes Year and Where: 2008 [facility] poly HPI additional information: PETE KEITH was diagnosed to have severe, AHI 42.4, obstructive sleep apnea- hypopnea syndrome and returned today for CPAP therapy annual follow-up. Sleep Study - Results Year and Where: 2008 [facility] poly CPAP Compliance Data - Data Reviewed with Patient Average duration of nightly device use: 7 HOURS 43 MINUTES Compliance rate %: 98.3 Current pressure setting (cmH2O): 15-16 Average residual AHI: 2.2 Average large leak: 4 HOURS 38 MINUTES Subjective Missed days of use due to: reports: other (POWER OUTAGE) Patient concerns: reports: dry mouth, nose, throat (humidifier on 5). denies: aerophagia, mask discomfort, air blowing in eyes, mask leak noise, condensation in mask/hose, nasal congestion, epistaxis, other Observed to snore while using device: No Current pressure setting perceived as: comfortable On therapy, patient: reports: sleeping better, awakening more refreshed, being more awake and alert during the day, more rested overall. denies: drowsiness while driving Initial [place] Sleepiness Scale score: 13 (in 2008) Current [place] Sleepiness Scale score: 2 (07/2021) Allergies and Home Medications Known drug allergies: No Drug allergies reviewed: Yes Home medication list reviewed: Yes (stopped omeprazole and started famotidine 20 mg) Allergy and home medication list: Allergies No Known Drug Allergies Allergy (Verified 07/12/16 14:05) Review of Systems Review of systems same as previous: Yes (no changes) Physical Exam Vital signs obtained and entered by: SYED CUETO Blood Pressure: 123/72 (RIGHT, PULSE 93, RESP 18, ) Cuff size: wrist Heart Rate: 93 O2 Saturation: 96 (N95 ASK) Height: 5 ft 8 in Weight: 199 lb (CLOTHES N SHOES) Weight change since last visit: 11 lb loss Body Mass Index: 30.2 BMI Classification: Obese Impression and Plan 1. Obstructive Sleep Apnea-Hypopnea Syndrome, severe, with good treatment compliance and good apnea control. On CPAP therapy, the patient has better sleep quality and is more rested overall. Patient has a REMstar CPAP that was last updated in 2010. I informed the patient that [employer] has a recall on several devices like the patients machine. If patient is not able to sleep due to waking up choking, gasping for air or other respiratory distress that they may decide to continue using it until it is either replaced or repaired. Since the patients current machine is at least 5 years old, the patient is opting to update their device with a device that is not on the recall. Thus, the CPAP will be updated. A DWO prescription will be made. Compliance guidelines for new device and follow up discussed. Patient voiced understanding and agreement with plan. Patient's apnea severity and rationale for treatment to reduce apnea, improve sleep quality and reduce cardiovascular and cerebrovascular events was reviewed. I also reviewed the benefit of consistent device use of CPAP for hypertension, depression and anxiety. * Continue auto CPAP pressure at 15-16 cmH2O * Update device * Notify me if snoring with mask or feeling that the pressure is too much or too little * Attempt to lose weight * Call this office if any problems using CPAP * Return for follow up in one month after he obtains new device, or sooner if concerns arise Counseling Topics: Spare mask, Weight loss health impact Visit Type: In Office Time Spent with Patient (minutes): 20 Provider Statement: I spent 100% of the Face to Face Visit with the patient with greater than 50% spent counseling the patient and coordination of care.
== END 2021-07-29 12:55 | disposition home or self-care (01) ==
LOC: SC 12:54
PROVIDERS: ATTEND Nurse Practitioner Family
DX: G47.33 Obstructive sleep apnea (adult) (pediatric) (principal); E66.9 Obesity, unspecified; Z68.30 Body mass index [BMI] 30.0-30.9, adult
CPT/HCPCS: 99213; G0463; 99212

== ENCOUNTER 2021-10-14 11:21 | Outpatient (CLI) | payer MEDICARE ==
[2021-10-14 12:05] VITALS: BP 128/69
--- NOTE | 2021-10-14 12:05 | SLEEP CARE CONSULTATION ---
Information from patient questionnaire entered by Yury Magallon MA. I have reviewed and concur with the information entered by Yury Magallon MA. This document represents the service I personally performed and the decisions made by , Teresa Giraldo ARNP. History of Present Illness Service Date and Time: 10/14/2021 1121 Previous diagnosis: Severe, Obstructive Sleep Apnea-Hypopnea Syndrome AHI: 42.4 Reason for follow up: first compliance (MICHAEL ROBERTSON 08/30/2021, ), first compliance after device update Accompanied by: Hector Reeves Equipment type: CPAP Equipment obtained from: [employer] (getting supplies as needed) Mask style: Full face Backup mask available: Yes (other mask) Last cushion change: yesterday Prior sleep studies: Yes Year and Where: 2008 [facility] poly HPI additional information: EPTE KEITH was diagnosed to have severe, AHI 42.4, obstructive sleep apnea- hypopnea syndrome and returned today with caregiver Leandro for CPAP therapy first compliance after updating device follow-up. Sleep Study - Results Prior sleep studies: Yes Year and Where: 2008 [facility] poly CPAP Compliance Data - Data Reviewed with Patient Average duration of nightly device use: 6 HOURS 53 MINUTES Compliance rate %: 97 (09/13/21-10/12/21; days used) Current pressure setting (cmH2O): 15-16 Average residual AHI: 0.2 Central apnea: .1 Obstructive apnea: .0 Hypopnea: .1 Average large leak: 36.8 Subjective Patient concerns: denies: aerophagia, mask discomfort, air blowing in eyes, mask leak noise, condensation in mask/hose, nasal congestion, dry mouth, nose, throat (improved with new machine), epistaxis, other Observed to snore while using device: No Current pressure setting perceived as: comfortable On therapy, patient: reports: sleeping better, awakening more refreshed, being more awake and alert during the day, more rested overall. denies: drowsiness while driving Initial [place] Sleepiness Scale score: 13 (in 2008) Current [place] Sleepiness Scale score: 1 (10/14/2021) Allergies and Home Medications Known drug allergies: No (NKA) Drug allergies reviewed: Yes Home medication list reviewed: Yes (no changes) Allergy and home medication list: Allergies No Known Drug Allergies Allergy (Verified 07/12/16 14:05) Review of Systems Review of systems same as previous: Yes (no changes) Physical Exam Vital signs obtained and entered by: SYED CUETO Blood Pressure: 128/69 (RESP 20, PULSE 82, RIGHT) Cuff size: wrist Heart Rate: 77 O2 Saturation: 97 (PAPER MASK) Height: 5 ft 8 in Weight: 191 lb 8 oz (CLOTHES) Body Mass Index: 29.1 BMI Classification: Overweight Impression and Plan 1. Obstructive Sleep Apnea-Hypopnea Syndrome, severe, with good treatment compliance and excellent apnea control. On CPAP therapy, the patient has better sleep quality and is more rested overall. Patient really likes the new machine a nd has had less dry mouth since starting with the ResMed CPAP. Patient denies problems with oral dryness, nasal congestion, epistaxis, skin irritation or aerophagia. Patient's apnea severity and rationale for treatment to reduce apnea, improve sleep quality and reduce cardiovascular and cerebrovascular events was reviewed. I also reviewed the benefit of consistent device use of CPAP for hypertension, depression and anxiety. Patient has a BMI of 29.1 and is overweight. He was encouraged to try to lose weight. * Continue auto CPAP pressure at 15-16 cmH2O * Notify me if snoring with mask or feeling that the pressure is too much or too little * Attempt to lose weight * Call this office if any problems using CPAP * Return for follow up in 1 year, or sooner if concerns arise Counseling Topics: Spare mask, Weight loss health impact Visit Type: In Office Other Participants: Caregiver (Leandro) Time Spent with Patient (minutes): 12 Provider Statement: I spent 100% of the Face to Face Visit with the patient with greater than 50% spent counseling the patient and coordination of care.
== END 2021-10-14 11:22 | disposition home or self-care (01) ==
LOC: SC 11:21
PROVIDERS: ATTEND Nurse Practitioner Family
DX: G47.33 Obstructive sleep apnea (adult) (pediatric) (principal); E66.3 Overweight; Z68.29 Body mass index [BMI] 29.0-29.9, adult
CPT/HCPCS: 99212; G0463

== ENCOUNTER 2022-04-07 10:47 | Outpatient (CLI) | payer MEDICARE ==
[2022-04-07 14:54] LABS: ABSOLUTE RETICS # AUTO 0.048 10^6/uL (0.020-0.110); BASOPHILS % (AUTO) 0.5 %; EOSINOPHILS # (AUTO) 0.1 10^3/uL (0.0-0.7); EOSINOPHILS % (AUTO) 1.2 %; HCT - HEMATOCRIT 33.1 % (42.0-52.0); HGB - HEMOGLOBIN 10.2 g/dL (14.0-18.0); LYMPHOCYTES # (AUTO) 1.1 10^3/uL (1.5-3.5); LYMPHOCYTES % (AUTO) 13.3 %; MEAN CORPUSCULAR HEMOGLOBIN 27.9 pg (27.0-31.0); MEAN CORPUSCULAR HGB CONC 30.8 g/dL (32.0-36.0); MEAN CORPUSCULAR VOLUME 90.4 fL (80.0-94.0); MEAN PLATELET VOLUME 10.1 fL (7.4-11.4); MONOCYTES # (AUTO) 0.6 10^3/uL (0.0-1.0); MONOCYTES % (AUTO) 6.7 %; NEUTROPHILS # (AUTO) 6.4 10^3/uL (1.5-6.6); NEUTROPHILS % (AUTO) 77.8 %; PLT - PLATELET COUNT 303 10^3/uL (130-450); RED BLOOD COUNT 3.66 10^6/uL (4.70-6.10); RED CELL DISTRIBUTION WIDTH 14.6 % (12.0-15.0); RETICULOCYTE COUNT % (AUTO) 1.32 % (0.5-2.3); WHITE BLOOD COUNT 8.2 x10^3/uL (4.8-10.8)
[2022-04-07 15:48] LABS: ALBUMIN 3.3 g/dL (3.2-5.5); ALBUMIN/GLOBULIN RATIO 0.9 (1.0-2.2); BILIRUBIN,TOTAL 0.4 mg/dL (0.2-1.0); CALCIUM 9.1 mg/dL (8.5-10.3); CREATININE 1.4 mg/dL (0.6-1.2); CRP - C-REACTIVE PROTEIN 2.5 mg/dL (0-1.0); POTASSIUM 4.6 mmol/L (3.5-5.0)
[2022-04-07 16:06] LABS: THYROID STIMULATING HORMONE 3.04 uIU/mL (0.34-5.60)
[2022-04-07 16:14] LABS: FERRITIN 417.6 ng/mL (23.9-336.2)
[2022-04-07 16:17] LABS: FOLATE 14.44 ng/mL (5.90 - >24.8)
== END 2022-04-07 10:48 | disposition home or self-care (01) ==
LOC: LAB.S 10:47
PROVIDERS: ATTEND Internal Medicine
DX: D64.9 Anemia, unspecified (principal)
CPT/HCPCS: 36415; 80053; 82607; 82728; 82746; 83540; 84443; 84466; 85025; 85045; 85651; 86140

== ENCOUNTER 2022-08-18 10:22 | Outpatient (CLI) | payer MEDICARE ==
--- NOTE | 2022-08-18 11:05 | Sleep Patient Instructions ---
Sleep Center Visit Summary - Patient Visit Information Reason for Visit: Annual visit for PAP therapy - Patient Instructions Additional Instructions: You will continue with CPAP therapy with pressure set at 15-16 cmH2O. A supply prescription will be updated with your DME. We encourage you to continue to try to lose weight. Please follow up with the sleep care office in 1 year. - Clinic Information Contact: [facility] [address] [place] [address] [email or web address] T: [phone]
--- NOTE | 2022-08-18 11:10 | SLEEP CARE CONSULTATION ---
Information from patient questionnaire entered by Td Jordan. I have reviewed and concur with the information entered by Td Jordan. This document represents the service I personally performed and the decisions made by me, Teresa Giraldo ARNP. History of Present Illness Service Date and Time: 08/18/2022 1022 Previous diagnosis: Severe, Obstructive Sleep Apnea-Hypopnea Syndrome AHI: 42.4 Reason for follow up: annual (LAST SEEN 09/08) Equipment type: CPAP (RESMED Airsense 11, s/u 08/2021) Equipment obtained from: [employer] (getting supplies as needed) Mask style: Full face Mask brand: Resmed (AirTouch [email or web address]) Backup mask available: Yes (old mask) Last cushion change: 1 month Prior sleep studies: Yes Year and Where: 2008 [facility] poly HPI additional information: PETE KEITH was diagnosed to have severe, AHI 42.4, obstructive sleep apnea- hypopnea syndrome and returned today for CPAP therapy annual follow-up. Sleep Study - Results Prior sleep studies: Yes Year and Where: 2008 [facility] poly CPAP Compliance Data - Data Reviewed with Patient Average duration of nightly device use: 4 HRS 52 MINS Compliance rate %: 74 (02/18/22-08/16/22; 175/180 days used) Current pressure setting (cmH2O): 15-16 Average residual AHI: 0.2 Central apnea: 0 Obstructive apnea: 0 Hypopnea: 0.2 Subjective Missed days of use due to: reports: other (power outages) Patient concerns: denies: aerophagia, mask discomfort, air blowing in eyes, mask leak noise, condensation in mask/hose, nasal congestion, dry mouth, nose, throat, epistaxis Observed to snore while using device: No Current pressure setting perceived as: comfortable On therapy, patient: reports: sleeping better, awakening more refreshed, being more awake and alert during the day, more rested overall. denies: drowsiness while driving Initial [place] Sleepiness Scale score: 13 (in 2008) Current [place] Sleepiness Scale score: 2 (08/18/22) Allergies and Home Medications Known drug allergies: No Drug allergies reviewed: Yes Home medication list reviewed: Yes (Omeprazole) Allergy and home medication list: Allergies No Known Drug Allergies Allergy (Verified 08/17/22 10:00) Review of Systems Review of systems same as previous: Yes (no changes) Physical Exam Vital signs obtained and entered by: TD Mcallister MA Blood Pressure: 96/52 (LEFT ARM) Cuff size: regular Heart Rate: 82 O2 Saturation: 56 Height: 5 ft 8 in Weight: 184 lb 6.4 oz Weight change since last visit: 7 lb loss Body Mass Index: 28.0 BMI Classification: Overweight Impression and Plan 1. Obstructive Sleep Apnea-Hypopnea Syndrome, severe, with good treatment compliance and good apnea control. On CPAP therapy, the patient has better sleep quality and is more rested overall. Patient has significant improvement of their sleep apnea and is satisfied with current CPAP therapy. Patient denies problems with oral dryness, nasal congestion, epistaxis, skin irritation or aerophagia. Patient's apnea severity and rationale for treatment to reduce apnea, improve sleep quality and reduce cardiovascular and cerebrovascular events was reviewed. I also reviewed the benefit of consistent device use of CPAP for hypertension, depression and anxiety. 2. Overweight, unspecified. Currently patients BMI is 28. He has lost weight. He is trying to exercise daily. Obesity increases the risk of apnea, CPAP pressure requirements and overall health risks especially cardiovascular and diabetes. Thus patient is advised to lose weight. * Continue auto CPAP pressure at 15-16 cmH2O * Update supplies * Notify me if snoring with mask or feeling that the pressure is too much or too little * Attempt to lose weight * Call this office if any problems using CPAP * Return for follow up in 1 year, or sooner if concerns arise Counseling Topics: Spare mask, Weight loss health impact Visit Type: In Office Time Spent with Patient (minutes): 20 Provider Statement: I spent 100% of the Face to Face Visit with the patient with greater than 50% spent counseling the patient and coordination of care.
[2022-08-18 11:15] VITALS: BP 96/52
== END 2022-08-18 10:23 | disposition home or self-care (01) ==
LOC: SC 10:22
PROVIDERS: ATTEND Nurse Practitioner Family
DX: G47.33 Obstructive sleep apnea (adult) (pediatric) (principal); E66.3 Overweight; Z68.28 Body mass index [BMI] 28.0-28.9, adult
CPT/HCPCS: 99213; G0463; 99212

== ENCOUNTER 2023-06-27 07:37 | Outpatient (CLI) | payer MEDICARE ==
[2023-06-27 15:07] LABS: ABSOLUTE RETICS # AUTO 0.053 10^6/uL (0.020-0.110); RED BLOOD COUNT 3.96 10^6/uL (4.70-6.10); RETICULOCYTE COUNT % (AUTO) 1.33 % (0.5-2.3)
[2023-06-27 15:20] LABS: FERRITIN 74.1 ng/mL (23.9-336.2)
== END 2023-06-27 07:38 | disposition home or self-care (01) ==
LOC: LAB.S 07:37
PROVIDERS: ATTEND Physician Assistant Medical
DX: D64.9 Anemia, unspecified (principal)
CPT/HCPCS: 36415; 82607; 82728; 82746; 83540; 84466; 85045

== ENCOUNTER 2023-06-28 13:44 | Outpatient (CLI) | payer MEDICARE ==
--- NOTE | 2023-06-28 14:08 | Sleep Patient Instructions ---
Sleep Center Visit Summary - Patient Visit Information Reason for Visit: 9-month follow-up - Patient Instructions Additional Instructions: You will continue with CPAP therapy with pressure set at 15-16 cmH2O. A supply prescription will be updated with your DME. Please follow up with the sleep care office in 1 year. - Clinic Information Contact: [facility] [address] [place] [id number] [email or web address] T: [phone]
--- NOTE | 2023-06-28 14:13 | SLEEP CARE CONSULTATION ---
Information from patient questionnaire entered by Davina Jordan. I have reviewed and concur with the information entered by Davina Jordan. This document represents the service I personally performed and the decisions made by , Amanda Giraldo ARNP. History of Present Illness Service Date and Time: 06/28/2023 1344 Previous diagnosis: Severe, Obstructive Sleep Apnea-Hypopnea Syndrome AHI: 42.4 (in 2008) Reason for follow up: other (9 MONTH F/U) Accompanied by: Leandro wheeler Equipment type: CPAP (RESMED Airsense 11, s/u 08/2021) Equipment obtained from: [employer] (getting supplies as needed) Mask style: Full face Backup mask available: Yes Last cushion change: couple weeks Prior sleep studies: Yes Year and Where: 2008 [facility] poly HPI additional information: PETE KEITH was diagnosed to have severe, AHI 42.4, obstructive sleep apnea- hypopnea syndrome and returned today for CPAP therapy nine month follow-up. Sleep Study - Results Prior sleep studies: Yes Year and Where: 2008 [facility] poly CPAP Compliance Data - Data Reviewed with Patient Average duration of nightly device use: 5 HRS 28 MINS Compliance rate %: 67 (09/29/22-06/25/23; 93% in last 30 days) Current pressure setting (cmH2O): 15-16 Average residual AHI: 0.3 Central apnea: 0 Obstructive apnea: 0 Average large leak: 37.3 L/min Subjective Missed days of use due to: reports: other (Dentist) Patient concerns: reports: mask leak noise. denies: aerophagia, mask discomfort, air blowing in eyes, condensation in mask/hose, nasal congestion, dry mouth, nose, throat, epistaxis Current pressure setting perceived as: comfortable On therapy, patient: reports: sleeping better, awakening more refreshed, being more awake and alert during the day, more rested overall. denies: drowsiness while driving (he does not drive) Initial [place] Sleepiness Scale score: 13 (in 2008) Current [place] Sleepiness Scale score: 0 Allergies and Home Medications Known drug allergies: No Drug allergies reviewed: Yes Home medication list reviewed: Yes (no changes) Allergy and home medication list: Allergies No Known Drug Allergies Allergy (Verified 06/26/23 11:22) Review of Systems Review of systems same as previous: Yes (no changes) Physical Exam Vital signs obtained and entered by: AMANDA FORD-Esvin Blood Pressure: 104/70 Cuff size: regular (right arm) Heart Rate: 82 O2 Saturation: 97 Height: 5 ft 8 in Weight: 158 lb 12.8 oz Weight change since last visit: 26 lb loss Body Mass Index: 24.1 BMI Classification: Normal Impression and Plan 1. Obstructive Sleep Apnea-Hypopnea Syndrome, severe, with good treatment compliance and good apnea control. On CPAP therapy, the patient has better sleep quality and is more rested overall. He had dental surgery, teeth removed and then dentures made about 2 months ago. He is still adjusting to the new dentures. He missed a few days because of discomfort with his new teeth of using his machine but overall he has been compliant. Patient has significant improvement of their sleep apnea and is satisfied with current CPAP therapy. Patient denies problems with oral dryness, nasal congestion, epistaxis, skin irritation or aerophagia. Patient's apnea severity and rationale for treatment to reduce apnea, improve sleep quality and reduce cardiovascular and cerebrovascular events was reviewed. I also reviewed the benefit of consistent device use of CPAP for hypertension, depression/anxiety. * Continue auto CPAP pressure at 15-16 cmH2O * Update supply prescription * Notify me if snoring with mask or feeling that the pressure is too much or too little * Call this office if any problems using CPAP * Return for follow up in 12 months, or sooner if concerns arise Counseling Topics: Weight control Prescriptions: Device supplies Follow up with Sleep Care in: 1 year Visit Type: In Office Time Spent with Patient (minutes): 20 Provider Statement: I spent 100% of the Face to Face Visit with the patient with greater than 50% spent counseling the patient and coordination of care.
[2023-06-28 14:22] VITALS: BP 104/70; O2SAT 97
== END 2023-06-28 13:45 | disposition home or self-care (01) ==
LOC: SC 13:44
PROVIDERS: ATTEND Nurse Practitioner Family
DX: G47.33 Obstructive sleep apnea (adult) (pediatric) (principal)
CPT/HCPCS: 99213; G0463; 99212

== ENCOUNTER 2023-09-29 08:37 | Outpatient (CLI) | payer MEDICARE ==
[2023-09-29 15:46] LABS: BASOPHILS % (AUTO) 0.4 %; EOSINOPHILS # (AUTO) 0.1 10^3/uL (0.0-0.7); EOSINOPHILS % (AUTO) 1.3 %; HCT - HEMATOCRIT 35.6 % (42.0-52.0); HGB - HEMOGLOBIN 11.3 g/dL (14.0-18.0); LYMPHOCYTES # (AUTO) 1.3 10^3/uL (1.5-3.5); LYMPHOCYTES % (AUTO) 23.6 %; MEAN CORPUSCULAR HEMOGLOBIN 27.8 pg (27.0-31.0); MEAN CORPUSCULAR HGB CONC 31.7 g/dL (32.0-36.0); MEAN CORPUSCULAR VOLUME 87.5 fL (80.0-94.0); MEAN PLATELET VOLUME 10.8 fL (7.4-11.4); MONOCYTES # (AUTO) 0.5 10^3/uL (0.0-1.0); MONOCYTES % (AUTO) 8.4 %; NEUTROPHILS # (AUTO) 3.7 10^3/uL (1.5-6.6); NEUTROPHILS % (AUTO) 66.1 %; PLT - PLATELET COUNT 212 10^3/uL (130-450); RED BLOOD COUNT 4.07 10^6/uL (4.70-6.10); RED CELL DISTRIBUTION WIDTH 16.8 % (12.0-15.0); WHITE BLOOD COUNT 5.6 x10^3/uL (4.8-10.8)
[2023-09-29 16:00] LABS: ALBUMIN 3.3 g/dL (3.2-5.5); ALBUMIN/GLOBULIN RATIO 1.1 (1.0-2.2); BILIRUBIN,TOTAL 0.3 mg/dL (0.2-1.0); CALCIUM 9.2 mg/dL (8.5-10.3); CREATININE 0.9 mg/dL (0.6-1.3); POTASSIUM 4.6 mmol/L (3.5-4.5); TOTAL PROTEIN 6.3 g/dL (6.4-8.9)
[2023-09-29 16:18] LABS: THYROID STIMULATING HORMONE 6.07 uIU/mL (0.34-5.60)
[2023-09-29 16:23] LABS: FERRITIN 332.7 ng/mL (23.9-336.2)
== END 2023-09-29 08:38 | disposition home or self-care (01) ==
LOC: LAB.S 08:37
PROVIDERS: ATTEND Nurse Practitioner Gerontology
DX: D64.9 Anemia, unspecified (principal); Z13.21 Encounter for screening for nutritional disorder; F31.9 Bipolar disorder, unspecified
CPT/HCPCS: 36415; 80053; 82728; 83540; 84439; 84443; 84466; 85025